=== PATIENT | female | born 2000 | race Two or more races ===

== ENCOUNTER 2023-02-22 16:56 | Outpatient (CLI) | payer BC, SELFPAY | END 2023-02-22 16:57 | disposition home or self-care (01) | PROVIDERS: Visit Provider Registered Nurse | DX: N91.5 Oligomenorrhea, unspecified (principal) | CPT/HCPCS: 80061; 82670; 82947; 83001; 83498; 84146; 84270; 84402; 84403; 84443 ==

== ENCOUNTER 2023-03-22 18:48 | Outpatient (CLI) | payer BC, SELFPAY ==
[2023-03-22 22:40] LABS: Chlamydia DNA Amplified* NOT DETECTED (No Detected); GC DNA Amplified* NOT DETECTED (No Detected)
== END 2023-03-22 18:49 | disposition home or self-care (01) ==
PROVIDERS: PCP Family Medicine; Visit Provider Registered Nurse
DX: Z11.3 Encounter for screening for infections with a predominantly sexual mode of transmission (principal)
CPT/HCPCS: 87491; 87591

== ENCOUNTER 2023-09-28 20:07 | Emergency (ER) | payer OTHER, SELFPAY ==
[2023-09-28 20:19] VITALS: BP 111/73; PULSE 79; RESP 18; TEMP 36.7; O2SAT 99; BMI 26.5
--- NOTE | 2023-09-28 20:24 | ED_ITS ---
HPI - General Time Seen by Provider: 20:24 Date Seen: 09/28/23 Chief complaint: OB/Uterine Contractions Stated complaint: - stomach pain - bleeding Time Seen by Provider: 09/28/23 20:23 Source: patient, RN notes reviewed and lab pack chemist Mode of arrival: ambulatory Limitations: no limitations History of Present Illness HPI Narrative: This 23-year-old female is seen with the aid of the lab pack chemist, she is coming in for cramping and bleeding with early . She has had a home positive test. Her last menstrual period was reportedly on August 23, this would make her 5-/7 weeks. She started with more pinkish spotting with wiping yesterday. It has progressed into bleeding, there are some clots. She is having to wear pads. She does have lower abdominal pain and cramping with this. This would be her 2nd , 1st was a miscarriage about 6 weeks. She is not dizzy, no nausea vomiting, no diarrhea, no fevers associated with this. Patient took 1 Tylenol earlier this morning. MD Complaint: abdominal pain and vaginal bleeding Date of last menstrual period: 08/24/23 Patient : Yes Number of Weeks : 5 7 OB History - Previous Pregnancies: miscarriage (One prior miscarriage) Related Data : 2 Total number of abortions (spontaneous and elective): 1 Home Medications ?Medication ?Instructions ?Recorded ?Confirmed No Known Home Medications 09/28/23 09/28/23 Allergies Allergy/AdvReac Type Severity Reaction Status Date / Time No Known Drug Allergies Allergy Verified 09/28/23 20:22 Review of Systems Status of ROS: Reports: 6 or more systems reviewed and unremarkable except as noted in History and below [facility] Medical History (Updated 09/28/23 @ 21:52 by May Kaminski MD) No significant past medical history Surgical History H/O dilation and curettage ?Z98.890 - Other specified postprocedural states (ICD-10) Family History Mother Diabetes High blood pressure Social History Narrative: Tamazight-speaking. What is your current living situation?: I presently have a place to live Problems where you live: no known problems In the past 12 months, utilities in danger of being shut off: no In past 12 months, lack of transportation kept you from medical appts, meetings, work, or getting things needed for daily living: no In the past 12 mos, have been you worried that your food would run out before you had money to buy more?: never true In the past 12 mos, the food you bought just didn't last and you didn't have money to buy more?: never true Smoking Status: Never smoker Second hand tobacco smoke exposure: No How often do you have a drink containing alcohol: never AUDIT-C Alcohol total score: 0 Non-prescribed substance use: denies use How often does anyone, including family, friends and others, physically hurt you : never How often does anyone, including family, friends and others, insult or talk down to you: never How often does anyone, including family, friends and others, threaten you with harm: never How often does anyone, including family, friends and others, scream or curse at you: never Little interest or pleasure in doing things: not at all Feeling down, depressed, or hopeless: not at all Exam Const: Vital Signs, click to edit/add: Vital Signs - 24 hr 09/28/23 20:19 Temperature 98.1 F Pulse Rate [Right Pulse Oximeter] 79 Respiratory Rate 18 Blood Pressure [Ri ght Upper Arm] 111/73 Pulse Oximetry 99 Oxygen Delivery Me thod Room Air 23-year-old female is alert, interactive , no apparent distress, patient initially sitting up on the edge of the bed. Face atraumatic come sclera clear. Neck is supple, no adenopathy, no thyromegaly masses or nodules. Lungs are clear, good air entry, wheeze or crackles. CV regular rate and rhythm, no murmur, normal S1-S2, no S3-S4. Abdomen is soft, nondistended, mild suprapubic tenderness without rebound or guarding. Do not feeling any organomegaly. No lower extremity edema, skin visualize the any rash. Documenting provider has reviewed patient's vital signs: yes Course Course ED Course: Reviewed plan for labs, will give her some acetaminophen for some initial pain management and see if that is sufficient. Will get ultrasound just to ensure no concerns other than probable early miscarriage. Reevaluation(s) Time of Reevaluation #1: 21:42 Reevaluation #1: Reviewed with patient that her ultrasound shows no evidence of any intrauterine . Her hCG is quite low at 9, this most definitely represents a miscarriage for her. We discussed that she is not anemic at this time. She may anticipate bleeding that would be anonymous with a heavy menstrual cycle. I have asked her to follow up with [facility] here, she was planning on doing her OB care here. We would like to make sure that she follows up with them, to discuss the 2nd miscarriage in make sure that she is okay. Her hCG also should be followed to 0. Vital Signs Vital signs: Initial Vital Signs Temperature 98.1 F 09/28/23 20:19 Temperature Source Temporal Artery Scan 09/28/23 20:19 Pulse Rate 79 09/28/23 20:19 Respiratory Rate 18 09/28/23 20:19 Blood Pressure 111/73 09/28/23 20:19 Blood Pressure Mean 85 09/28/23 20:19 Blood Pressure Position Sitting 09/28/23 20:19 Pulse Oximetry 99 09/28/23 20:19 Oxygen Delivery Method Room Air 09/28/23 20:19 Vital Signs Temperature 98.1 F 09/28/23 20:19 Pulse Rate 79 09/28/23 20:19 Respiratory Rate 18 09/28/23 20:19 Blood Pressure 111/73 09/28/23 20:19 Pulse Oximetry 99 09/28/23 20:19 Oxygen Delivery Method Room Air 09/28/23 20:19 Temperature 98.1 F 09/28/23 20:19 Pulse Rate 79 09/28/23 20:19 Respiratory Rate 18 09/28/23 20:19 Blood Pressure 111/73 09/28/23 20:19 Pulse Oximetry 99 09/28/23 20:19 Oxygen Delivery Method Room Air 09/28/23 20:19 MDM - OB/Uterine Contractions Lab Data Attestation: I reviewed the patient's lab results. Labs: Lab Results 09/28/23 Range/Units 20:45 WBC 10.22 (4.50-11.00) K/uL RBC 4.53 (4.00-5.20) m/uL Hgb 13.4 (12.0-16.0) gm/dL Hct 40.3 (33.0-51.0) % MCV 89 (80-100) fL MCH 30 (26-34) pg MCHC 33 (32-36) gm/dL RDW Coeff of Gayle 13.8 (11.5-15.5) % Plt Count 237 (140-440) K/uL Neut % (Auto) 57.4 (42.0-72.0) % Lymph % (Auto) 34.3 (20-44) % Taylor % (Auto) 7.0 (0.0-11.0) % Eos % (Auto) 0.9 (0.0-7.0) % Baso % (Auto) 0.2 (0.0-3.0) % Neut # (Auto) 5.86 (1.7-7.0) K/uL Lymph # (Auto) 3.51 H (0.90-2.90) K/uL Taylor # (Auto) 0.70 (0.00-0.90) K/UL Eos # (Auto) 0.09 (0.00-0.50) K/uL Baso # (Auto) 0.02 (0.00-0.30) K/uL Abs Immat Gran (auto) 0.02 (0.00-0.30) K/uL Imm/Tot Granulo (auto) 0.2 % Sodium 138 (135-149) mmol/L Potassium 3.6 (3.6-5.1) mmol/L Chloride 106 (96-114) mmol/L Carbon Dioxide 25 (20-32) mmol/L Anion Gap 7 (7-15) mEq/L BUN 4 L (5-24) mg/dL Creatinine 0.5 (0.5-1.5) mg/dL Estimated Creat Clear 137.22 Estimated GFR 134 ml/min Glucose 94 (60-115) mg/dL Calcium 9.2 (8.4-10.6) mg/dL HCG, Quant 9.33 mIU/mL Blood Type B Positive Imaging Data US - abdomen: Attestation: I have reviewed the pertinent imaging results. Radiologist's impression: Patient: RANDI SEPULVEDA Facility:?[facility] Patient ID:?[id number] Site Patient ID:?[id number]. Site :?[id number] Study:?US-OB Pelvis OB TV-09/28/2023 9:35:20 PM Ordering Physician:Camila Olvera Final Report: INDICATION: Bleeding in early . TECHNIQUE: Ultrasound pelvis transvaginal. Real-time sonographic images with spectral and color Doppler imaging of the ovaries were obtained. COMPARISON: None. FINDINGS: No intrauterine gestation identified. The uterus is normal in appearance. Normal endometrial stripe thickness measuring 8 mm. No fluid collection visualized within the endometrial canal. The ovaries are normal in appearance with appropriate blood flow. No adnexal mass. No abnormal free fluid in the pelvic cul-de-sac. IMPRESSION: Unremarkable pelvic ultrasound. No intrauterine gestation identified. In the setting of a positive beta HCG, findings could represent an early nonvisualized intrauterine gestation, an early nonvisualized ectopic , or a failed intrauterine gestation. Recommend close clinical follow-up with serial B-HCGs and repeat US, as indicated. Dictated by Demar Wright MD @ 09/28/2023 9:39:40 PM (Electronic Signature) Discharge Plan Discharge Clinical Impression: Miscarriage Patient Disposition: Home, Self-Care Condition: Stable Instructions: Miscarriage (ED) Additional Instructions: [facility] at [phone] to get scheduled for a follow-up appointment. If you are bleeding heavy with greater than a maxi pad an hour for over 2 hours, are becoming lightheaded or dizzy, short of breath, chest pain or other symptoms that are concerning to with excessive blood loss, please return for further evaluation. Activity Level: Activity as Tolerated Prescriptions: No Action No Known Home Medications Follow Up/Referrals: Ranjith Juarez MD [Primary Care Provider] - Stand Alone Forms: MyHealth Info Instructions Procedures Perimortem Number of Weeks : 5 03/13
--- NOTE | 2023-09-28 20:28 | CRLHL7_ITS ---
For Patients: As a result of the Century Cures Act, medical imaging exams and procedure reports are released immediately into your electronic medical record. You may view this report before your referring provider. If you have questions, please contact your health care provider. INDICATION: Bleeding in early . TECHNIQUE: Ultrasound pelvis transvaginal. Real-time sonographic images with spectral and color Doppler imaging of the ovaries were obtained. COMPARISON: None. FINDINGS: No intrauterine gestation identified. The uterus is normal in appearance. Normal endometrial stripe thickness measuring 8 mm. No fluid collection visualized within the endometrial canal. The ovaries are normal in appearance with appropriate blood flow. No adnexal mass. No abnormal free fluid in the pelvic cul-de-sac. IMPRESSION: Unremarkable pelvic ultrasound. No intrauterine gestation identified. In the setting of a positive beta HCG, findings could represent an early nonvisualized intrauterine gestation, an early nonvisualized ectopic , or a failed intrauterine gestation. Recommend close clinical follow-up with serial B-HCGs and repeat US, as indicated. Dictated by Demar Wright MD @ 09/28/2023 9:39:40 PM (Electronically Signed)
[2023-09-28 20:51] LABS: Basophils Absolute Auto 0.02 K/uL (0.00-0.30); Basophils Percent Auto 0.2 % (0.0-3.0); Eosinophils Absolute Auto 0.09 K/uL (0.00-0.50); Eosinophils Percent Auto 0.9 % (0.0-7.0); Hematocrit 40.3 % (33.0-51.0); Hemoglobin* 13.4 gm/dL (12.0-16.0); Immature Granulocytes Abs Auto 0.02 K/uL (0.00-0.30); Immature Granulocytes Pct Auto 0.2 %; Lymphocytes Absolute Auto 3.51 K/uL (0.90-2.90); Lymphocytes Percent Auto 34.3 % (20-44); Mean Corpuscular HGB Conc 33 gm/dL (32-36); Mean Corpuscular Hemoglobin 30 pg (26-34); Mean Corpuscular Volume 89 fL (80-100); Neutrophils Absolute Auto 5.86 K/uL (1.7-7.0); Neutrophils Percent Auto 57.4 % (42.0-72.0); Platelet Count* 237 K/uL (140-440); RDW Coefficient of Variation % 13.8 % (11.5-15.5); Red Blood Count 4.53 m/uL (4.00-5.20); White Blood Count* 10.22 K/uL (4.50-11.00)
[2023-09-28 21:05] LABS: Chloride* 106 mmol/L (96-114); Potassium* 3.6 mmol/L (3.6-5.1); Sodium* 138 mmol/L (135-149)
[2023-09-28 21:08] LABS: Anion Gap 7 mEq/L (7-15); Blood Urea Nitrogen* 4 mg/dL (5-24); Carbon Dioxide* 25 mmol/L (20-32); Glucose* 94 mg/dL (60-115)
[2023-09-28 21:09] LABS: Calcium* 9.2 mg/dL (8.4-10.6)
[2023-09-28 21:24] LABS: Creatinine* 0.5 mg/dL (0.5-1.5); Est. Creatinine Clearance* 137.22; Estimated Glomerular Filt Rate 134 ml/min; Slide Review Reflex No
[2023-09-28 21:26] LABS: HCG Quantitative* 9.33 mIU/mL
[2023-09-28 22:10] VITALS: BP 114/74; PULSE 74; RESP 18; TEMP 36.7; O2SAT 99
[2023-09-28 22:11] VITALS: BP 114/74; PULSE 74; RESP 18; TEMP 36.7
== END 2023-09-28 22:13 | disposition home or self-care (01) ==
LOC: ED 22:08
PROVIDERS: Emergency Provider Family Medicine; PCP Family Medicine
DX: O03.9 Complete or unspecified spontaneous abortion without complication (principal)
CPT/HCPCS: 36415; 59514; 76817; 80048; 84702; 85025; 86900; 86901; 99283; 99284

== ENCOUNTER 2024-02-15 18:14 | Emergency (ER) | payer OTHER, SELFPAY ==
[2024-02-15 18:18] VITALS: BP 113/79; PULSE 62; RESP 18; TEMP 36.7; O2SAT 100
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
== END 2024-02-15 19:49 | disposition home or self-care (01) ==
PROVIDERS: Emergency Provider Emergency Medicine; PCP Family Medicine
DX: S06.0X0A Concussion without loss of consciousness, initial encounter (principal); W22.8XXA Striking against or struck by other objects, initial encounter
CPT/HCPCS: 99283

== ENCOUNTER 2024-03-11 18:44 | Emergency (ER) | payer BC, SELFPAY ==
--- OUTSIDE RECORDS SUMMARY | 2024-03-11 18:47 | XMS_ITS | Clinical Summary ---
Author Organization [facility] Address [address] [place] [address] Care Team Providers Care Tow Truck Dispatcher Name Role Phone Saima Carey MD Primary Care Provider [phone] Source Comments PLEASE NOTE, if this patient is a minor, it may be UNLAWFUL to discuss sensitive information that is contained in these records (such as FAMILY PLANNING, MENTAL HEALTH or SUBSTANCE ABUSE) with the minor patient's parent or other person without the patient's specific authorization.[facility] Allergies No known active allergies Medications cetirizine (ZYRTEC) 10 mg tablet Take 10 mg by mouth once daily 2 Active SE-OTILIO-19 29 mg iron- 1 mg tab Take 1 Tablet by mouth once daily 2 Active folic acid (FOLVITE) 400 mcg tabletIndications: Encounter for removal of subdermal contraceptive implant,Pre-concep tion counseling Take 1 Tablet by mouth once daily 90 Tablet 3 2 Active ibuprofen 600 mg tabletIndications: Occipital headache Take 1 Tablet by mouth 3 (three) times daily as needed for pain ; take with food 30 Tablet 1 2 Active Active Problems Patient Care Coordination No te Formatting of this note is d ifferent from the original. DATING Dating Summary Working GAL: 01/07/22 set by Claudia Skaggs on 05/28/21 based on Last Menstrual Period on 04/02/21 Based On GAL GA Diff GA User Date Last Menstrual Period on 04/02/21 (Approximate) 01/07/22 Working Claudia Skaggs 05/28/21 OB SPECIALTY COMMENTS / OB CARE COORDINATION NOTES No specialty comments available. IMMUNIZATIONS AND PAP Last Tdap: Last Flu: Last Pap: No results found for: PAP COVID vaccine: Unknown, OVERVIEW Overview and Plan Delivery Plans Planned delivery location: [facility] OB EXAM Pregravid BMI: Could not be calculated Expected Total Weight Gain: Could not be calculated Physical No physicals filed. OB ULTRASOUND The most recent ultrasound was performed on with a study GA of . NST / BPP No data to display CARE TEAM No care team assistant to display Primary OB: No primary care provider on file. INITIAL LABS Blood type / Rh No results found for: ABO No results found for: RH Antibody Screen No results found for: ABSCREEN RPR/VDRL No results found for: RPR Diabetes Screen No results found for: [id number] Rubella No results found for: RUBELLA Hep B No results found for: HBSAGQL GBBS No results found for: CULTSTREPB HIV No components found for: [id number] No results found for: [id number] Hep C No results found for: HEPCABQL Gonorrhea / Chlamydia No results found for: CHLAMYDIA No results found for: CHLAMANAL No results found for: GC 5 Ps Problem Noted Date Diagnosed Date Chronic midline thoracic back pain 05/09/2022 Assessment & Plan (05/09/2022 7:59 PM CONSULTING APPLICATION ENGINEER): Possible back pain related to recent weight gain, posture at work Recommended supportive care with OTC analgesics, increased exercise/stretching, heating pads or ice as preferred If pain persists despite above measures can consider PT referral Weight gain 05/09/2022 Pelvic pain 05/09/2022 Assessment & Plan (05/09/2022 7:57 PM CONSULTING APPLICATION ENGINEER): Discussed with patient that pelvic US not routine after D&C unless continued bleeding or other symptoms arise Patient still concerned about pelvic etiology of lower abdominal pain Pelvis US ordered Other fatigue 01/12/2022 Assessment & Plan (01/12/2022 6:59 AM CONSULTING APPLICATION ENGINEER): Mild fatigue x 2 weeks. No anhedonia or low mood. No problem with meal frequency or sleep. CBC and TSH ordered. Occipital headache 12/15/2021 Assessment & Plan (12/15/2021 5:44 PM CDT): Likely tension type vs 2/2 upper back pain. Conservative measures with heat, neck stretches, ibuprofen, topicals, increasing water intake, updated eye exam. Follow up in clinic within 2 weeks. ER precautions. Abnormal uterine bleeding (AUB) 12/15/2021 Overview (12/15/2021): 2/2 Nexplanon removal Assessment & Plan (12/15/2021 5:31 PM CDT): Now resolved. Continue PNV, follow up in clinic within 2 weeks to assess. Pre-conception counseling 11/20/2021 Overview (11/20/2021): History reviewed - no risk factors Labs reviewed Start folic acid now - recommend waiting for one normal menses before pursuing for folic acid and dating. All questions answered. Foot injury 11/20/2021 Overview (11/20/2021): Patient inverted L foot approx 1 week ago - continues to be very painful on outer aspect, evolving bruising and mild swelling. Can walk but uncomfortable. Will order x-ray to confirm no fracture. Has crutches using at home for comfort - advised NSAID, tylenol, wrap if feels better, heat as tolerated / feels good. Encounter for removal of subdermal contraceptive implant 07/18/2021 Overview (11/20/2021): Nexplanon insertion - due for removal 08/07/26 11/19/21 Nexplanon removed as patient plans to pursue . Post-procedure care reviewed. Discussed can immediately become - condoms if wants to postpone for one normal menses to improve dating. Assessment & Plan (09/01/2021 4:41 PM CDT): -reassured pt that irregular bleeding w/ newly placed Nexplanon common -recommend if bleeding continues after 3-4 months of use to make in person appt for possible addition of ocp to help reduce the bleeding or perhaps switch to different method, pt agreeable Assessment & Plan (08/07/2021 2:17 PM CDT): Risks / benefits reviewed, desires Nexplanon Care reviewed F/U PRN Assessment & Plan (07/31/2021 4:53 PM CDT): Reviewed contraceptive options, advantages and disadvantages depending on a person's desires, future fertility plans and values. Written overview as well as more detailed information on LARCs and CHC given to review at home. Condoms dispensed. Desires Nexplanon but declines insertion today (has weekend plans that prohibit proper care) - f/u visit in 1 week. 100% use of condoms or abstinence encouraged until insertion. Assessment & Plan (07/18/2021 12:23 PM CDT): Reviewed contraceptive options, advantages and disadvantages depending on a person's desires, future fertility plans and values. Written overview as well as more detailed information on LARCs and CHC given to review at home. Condoms dispensed. At this time patient prefers to review at home, return to further discuss and RX. Discussed rapid return to fertility, need for condoms with sexual activity - correct use reviewed. Will continue vitamins. Patient does not want another rapidly - unsure when would want to be again. Interested in contraception, has not used before. Worried because has had UPI since D&C (> 5 d ago) and took test that is still positive. Discussed + test 2-4 weeks after loss / D&C common, can repeat at follow up and further eval at that time. Resolved Problems Problem Noted Date Diagnosed Date Resolved Date Nasal congestion 01/12/2022 02/11/2022 Assessment & Plan (01/12/2022 7:04 AM CONSULTING APPLICATION ENGINEER): Ongoing x 3 days. No known sick contacts, fevers or chills. Likely URI, advised to stay hydrated. Covid test ordered. Missed 07/02/2021 07/18/2021 Assessment & Plan (07/16/2021 10:00 PM CDT): Managed via D&C 07/03/21 at [facility]. Assessment & Plan (07/02/2021 11:33 AM CDT): CRL measuring 8w5d, no cardiac activity Rh positive Discussed management options with patient including expectant v medical v surgical management At this time patient considering surgical mangement - [facility] Incomplete 07/02/2021 07/19/19 22 Encounter for supervision of low-risk first in first trimester 06/18/2021 07/02/2021 Immunizations Name Administration Dates Next Due Pfizer COVID vaccine, COMIRNATY, zelaya cap, 12+ 0 06/18/2021 Family History Medical History Relation Name Comments Diabetes Mother Hypertension Mother Cancer Neg Genetic disorder Neg Heart Problems Neg Relation Name Status Comments Father Alive Mother Alive Social History Tobacco Use Types Packs/Day Years Used Date Smoking Tobacco: Never Smokeless Tobacco: Never Tobacco Cessation:Counseling Given: Not Answered Alcohol Use Standard Drinks/Week Comments Never 0 (1 standard drink = 0.6 oz pur e alcohol) Social Connections Answer Date Recorded Connectedness 0 11/18/2023 Financial Resource Strain Answer Date R ecorded Financial Resource Strain 0 2021 Stress Answer Date Recorded Stress 0 05/27/2021 Physical Activity Answer Date Recorded Physical Activity 0 05/27/2021 Food Insecurity Answer Date Recorded Food 0 12/01/2023 Transportation Needs Answer Date Record ed Transportation 0 05/27/2021 Housing Stability Answer Date Recorded Housing 0 05/27/2021 Safety and Environment Answer Date Yehuda rded Safety 0 05/27/2021 Utilities Answer Date Recorded Utilities 0 05/27/2021 Employment Answer Date Recorded Stress 0 11/18/2023 Comments Unknown Sex and Gender Information Value Date Recorded Sex Assigned at Female 05/28/2021 9:21 AM PDT Legal Sex Female 9:21 AM PDT Gender Identity Female 05/28/2021 9:21 AM PDT Sexual Orientation Straight 05/28/2021 9: 21 AM PDT Last Filed Vital Signs Vital Sign Reading Time Taken Comments Blood Pressure 116/75 04/27/2022 1:57 PM CONSULTING APPLICATION ENGINEER Pulse 123 04/27/2022 1:57 PM CONSULTING APPLICATION ENGINEER Temperature 37 C (98.6 F) 04/27/2022 1:57 PM CONSULTING APPLICATION ENGINEER Respiratory Rate - - Oxygen Saturation - - Inhaled Oxygen Concentration - - Weight 80.3 kg (177 lb) 04/27/2022 1:57 PM CONSULTING APPLICATION ENGINEER Height 162.6 cm (5' 4) 04/27/2022 1:57 PM CONSULTING APPLICATION ENGINEER Body Mass Index 30.38 04/27/2022 1:57 PM CONSULTING APPLICATION ENGINEER Plan of Treatment Health Maintenance Due Date Last Done Comments Dental FMX/Pano 1999 Dental Prophy 1999 HPV Screening 1999 Hepatitis C Screening 1999 Pap + HPV 1999 Tobacco Screening 1999 Imm-Varicella (1 of 2 - 13+ 2-dose series) 01/17/2012 HIV Screening 2014 Imm-HPV (1 - 3-dose series) 2014 Relationship Safety Screening/Counseling 2014 Annual Preventive Care Visit 2017 Imm-DTaP/Tdap/Td (1 - Tdap) 2018 Imm-Hepatitis B (1 of 3 - 19+ 3-dose series) 8 Dental Examination 01/15/2022 07/13/2021 Dental Perio Charting 07/15/2022 07/13/2021 Alcohol and Drug Screen 03/07/2023 Depression Annual Screen 03/07/2023 04/27/2022 [id number] ( season) 2023 022 Imm-Influenza (#1) 2023 Cervical Cancer Screening 06/18/2024 Pap Smear 06/18/2024 06/18/2021 Hypertension Screening (#1) 04/26/2025 Cervical Ablation/Cold-Knife Conization Discontinued Cervical Cryotherapy Discontinued Colposcopy Discontinued Endometrial Biopsy Discontinued Excision/Leep Discontinued HPV Genotyping Discontinued Vaginal Pap Discontinued Vulvoscopy Discontinued Procedures Procedure Name Priority Date/Time Associated Diagnosis Comments COMP PERIODONTAL EVALUATION - NEW/EST PATIENT Routine 07/13/2021 2:45 PM CDT Encounter for dental examination COMP ORAL EVALUATION - NEW/ESTABLISHED PATIENT Routine 07/13/2021 2:45 PM CDT Encounter for dental examination PAP, LIQUID BASED Routine 06/18/2021 11: 33 AM CDT Encounter for supervision of low-risk first in first trimester from Last 3 Months or Most Recently Relevant to Health Maintenance Results * PAP, LIQUID BASED (06/18/2021 11:33 AM CDT) DIAGNOSIS [facility] Comment:NEGATIVE FOR INTRAEP ITHELIAL LESION OR MALIGNANCY. SPECIMEN ADEQUACY [facility] Comment: Satisfactory for evaluation. Endocervical and/or squamous metaplastic cells (endocervical component) are present. CLINICIAN PROVIDED ICD10 [facility] Comment:Z34.01 PERFORMED BY [facility] Comment:Nelli Del Rio, Cyto technologist (ASCP) CYTOSTAIN . [facility] NOTE [facility] Comment: The Pap smear is a screening test designed to aid in the detection of premalignant and malignant conditions of the uterine cervix. It is not a diagnostic procedure and should not be used as the sole means of detecting cervical cancer. Both false-positive and false-negative reports do occur. . CYTOLOGY Cervix uteri structure / Unknown 06/18/2021 11:33 AM CDT 06/18/2021 Narrative [facility] - 06/24/2021 3:07 PM CDT Performed at: 01 - [address] [id number] Dairy Inspector: Philly Puente MD, Phone: [phone] us Trent Topete III, MD LAB - NO BLOOD DRAW Final Re sult [facility] from Last 3 Months or Most Recently Relevant to Health Maintenance Insurance [employer] Member Subscriber Plan / Payer (Ef fective 2021-Present) Name:Nereida Barr Relation to Subscriber:Self Name:Nereida Barr Payer ID:[id number] Group ID:Not on file Type:Medicaid Address: [address] [place] [id number] [place] [address] DENTAL [facility] Care Teams Tow Truck Dispatcher Relationship Specialty Start Date End Date Saima Carey MD [address] [place] [address] PCP - General 09/09/23
--- OUTSIDE RECORDS SUMMARY | 2024-03-11 18:47 | XMS_ITS | Continuity of Care Document ---
Author Name [facility]IN [facility] Address Unknown Organization Unknown Address Unknown Procedures FILTER APPLIED:Only known Procedures with Onset Date within the last 5 years Procedure Date Procedure Provider Additional Information Status CHLMYD TRACH DNA AMP PROBE (14530) Completed N.GONORRHOEAE DNA AMP PROB (05095) Completed ASSAY THYROID STIM HORMONE (32883) Completed ASSAY OF TOTAL ESTRADIOL (91479) Completed ASSAY OF GONADOTROPIN (FSH) (79197) Completed ASSAY OF PROLACTIN (46735) Completed ASSAY OF SEX HORMONE GLOBUL (12519) Completed ASSAY OF FREE TESTOSTERONE (98470) Completed ASSAY OF TOTAL TESTOSTERONE (80766) Completed ASSAY GLUCOSE BLOOD QUANT (54982) Completed LIPID PANEL (07180) Comp leted ASY HYDROXYPROGESTERONE 17-D (15226) Completed Encounters FILTER APPLIED:Only known Encounters with Admission Date within the last 5 years Encounter Location Admission Discharge Billing Code Bull Gang Worker Yasmin scott [facility]
[2024-03-11 18:56] VITALS: BP 122/75; PULSE 83; RESP 16; TEMP 37.4; O2SAT 98; BMI 26.2
[2024-03-11 19:19] LABS: Appearance Urine Clear (Clear); Bilirubin Urine Negative (Negative); Blood Urine Trace-intact (Negative); Color Urine Yellow (Yellow); Glucose Urine Negative (Negative); Ketones Urine Negative (Negative); Leukocyte Esterase Urine Negative (Negative); Nitrite Urine Negative (Negative); Protein Urine Negative (Negative); Specific Gravity Urine <= 1.005 (1.000-1.030); Urobilinogen Urine 0.2 (0.2-1.0); pH Urine 5.5 (5.0-8.5)
[2024-03-11 19:23] LABS: RBC Urine 0-2 (0-2); WBC Urine 0-2 (0-5)
[2024-03-11 19:24] LABS: Squamous Epithelial Cell Urine Few (None-Few)
--- NOTE | 2024-03-11 19:29 | CRLHL7_ITS ---
For Patients: As a result of the Century Cures Act, medical imaging exams and procedure reports are released immediately into your electronic medical record. You may view this report before your referring provider. If you have questions, please contact your health care provider. INDICATION: Bleeding in 1st trimester COMPARISON: None. TECHNIQUE: Real-time zelaya-scale imaging of the pelvis was performed. FINDINGS: No intrauterine or ectopic . No endometrial fluid. Endometrium measures 1.2 cm. No uterine fibroid. Normal ovaries. IMPRESSION: No intrauterine or ectopic . Dictated by Wilbert Cody MD @ 03/11/2024 9:11:04 PM (Electronically Signed)
--- OUTSIDE RECORDS SUMMARY | 2024-03-11 19:39 | XMS_ITS | Continuity of Care Document ---
Author Name [facility]wORIN [facility] Address Unknown Organization Unknown Address Unknown Procedures FILTER APPLIED:Only known Procedures with Onset Date within the last 5 years Procedure Date Procedure Provider Additional Information Status CHLMYD TRACH DNA AMP PROBE (70864) Completed N.GONORRHOEAE DNA AMP PROB (03766) Completed ASSAY THYROID STIM HORMONE (65151) Completed ASSAY OF TOTAL ESTRADIOL (47936) Completed ASSAY OF GONADOTROPIN (FSH) (02706) Completed ASSAY OF PROLACTIN (03652) Completed ASSAY OF SEX HORMONE GLOBUL (07727) Completed ASSAY OF FREE TESTOSTERONE (10036) Completed ASSAY OF TOTAL TESTOSTERONE (85817) Completed ASSAY GLUCOSE BLOOD QUANT (27321) Completed LIPID PANEL (85447) Comp leted ASY HYDROXYPROGESTERONE 17-D (02975) Completed Encounters FILTER APPLIED:Only known Encounters with Admission Date within the last 5 years Encounter Location Admission Discharge Billing Code Career Placement Specialist Yas[facility]
--- OUTSIDE RECORDS SUMMARY | 2024-03-11 19:39 | XMS_ITS | Clinical Summary ---
Author Organization [facility] Address [address] [place] [address] Care Team Providers Care Ethylene Compressor Operator Name Role Phone Saima Carey MD Primary Care Provider [phone] Source Comments PLEASE NOTE, if this patient [...] Dating Summary Working GAL: 01/07/22 set by Cluadia Skaggs on 05/28/21 based on Last Menstrual [...] and Plan Delivery Plans Planned delivery location: [facility] OB EXAM Pregravid BMI: Could not be calculated Expected Total Weight Gain: Could not be calculated Physical No physicals filed. OB ULTRASOUND The most recent ultrasound was performed on with a study GA of . NST / BPP No data to display CARE TEAM No care steam generating powerplant mechanic to display Primary OB: No primary care provider on file. INITIAL LABS Blood type / Rh No results found for: ABO No results found for: RH Antibody Screen No results found for: ABSCREEN RPR/VDRL No results found for: RPR Diabetes Screen No results found for: [id number] Rubella No results found for: RUBELLA Hep B No results found for: HBSAGQL GBBS No results found for: CULTSTREPB HIV No components found for: [id number] No results found for: [id number] Hep C No results found for: HEPCABQL Gonorrhea / Chlamydia No results found for: CHLAMYDIA No results found for: CHLAMANAL No results found for: GC 5 Ps Problem Noted Date Diagnosed Date Chronic midline thoracic back pain 05/09/2022 Assessment & Plan (05/09/2022 7:59 PM DIESEL MECHANIC FARM): Possible back pain related to recent weight gain, posture at work Recommended supportive care with OTC analgesics, increased exercise/stretching, heating pads or ice as preferred If pain persists despite above measures can consider PT referral Weight gain 05/09/2022 Pelvic pain 05/09/2022 Assessment & Plan (05/09/2022 7:57 PM DIESEL MECHANIC FARM): Discussed with patient that pelvic US not routine after D&C unless continued bleeding or other symptoms arise Patient still concerned about pelvic etiology of lower abdominal pain Pelvis US ordered Other fatigue 01/12/2022 Assessment & Plan (01/12/2022 6:59 AM DIESEL MECHANIC FARM): Mild fatigue x 2 weeks. No anhedonia [...] 02/11/2022 Assessment & Plan (01/12/2022 7:04 AM DIESEL MECHANIC FARM): Ongoing x 3 days. No known sick contacts, fevers or chills. Likely URI, advised to stay hydrated. Covid test ordered. Missed 07/02/2021 07/18/2021 Assessment & Plan (07/16/2021 10:00 PM CDT): Managed via D&C 07/03/21 at [facility]. Assessment & Plan (07/02/2021 11:33 AM CDT): [...] Comments Blood Pressure 116/75 04/27/2022 1:57 PM DIESEL MECHANIC FARM Pulse 123 04/27/2022 1:57 PM DIESEL MECHANIC FARM Temperature 37 C (98.6 F) 04/27/2022 1:57 PM DIESEL MECHANIC FARM Respiratory Rate - - Oxygen Saturation - - Inhaled Oxygen Concentration - - Weight 80.3 kg (177 lb) 04/27/2022 1:57 PM DIESEL MECHANIC FARM Height 162.6 cm (5' 4) 04/27/2022 1:57 PM DIESEL MECHANIC FARM Body Mass Index 30.38 04/27/2022 1:57 PM DIESEL MECHANIC FARM Plan of Treatment Health Maintenance Due Date Last Done Comments Dental FMX/Pano 1999 Dental Prophy 1999 HPV Screening 1999 Hepatitis C Screening 1999 Pap + HPV 1999 Tobacco Screening 1999 Imm-Varicella (1 of 2 - 13+ 2-dose series) 01/17/2012 HIV Screening 2014 Imm-HPV (1 - 3-dose series) 2014 Relationship Safety Screening/Counseling 2014 Imm-DTaP/Tdap/Td (1 - Tdap) 2018 Imm-Hepatitis B (1 of 3 - 19+ 3-dose series) 8 Dental Examination 01/15/2022 07/13/2021 Dental Perio Charting 07/15/2022 07/13/2021 [id number] () 11/06/2023 022 Imm-Influenza (#1) 2023 Alcohol and Drug Screen 03/07/2024 Depression Annual Screen 03/07/2024 04/27/2022 Cervical Cancer Screening 06/18/2024 Pap Smear 06/18/2024 [...] [facility] Comment:Nelli Del Rio, Cyto technologist (ASCP) CYTOSTORSTEN . [facility] NOTE [facility] Comment: The Pap [...] 3:07 PM CDT Performed at: 01 - [address] [id number] Supervisor Tile [employer] Mottle: Philly Puente MD, Phone: [phone] Trent Topete III, MD LAB - NO BLOOD DRAW Final Re [facility] from Last 3 Months or Most Recently Relevant to Health Maintenance Insurance [employer] Member Subscriber Plan / Payer (Ef fective 2021-Present) Name:Nereida Barr Relation to Subscriber:Self Name:Nereida Barr Payer ID:[id number] Group ID:Not on file Type:Medicaid Address: [address] [place] [id number] [place] [address] DENTAL [facility] Care Teams Ethylene Compressor Operator Relationship Specialty Start Date End Date Saima Carey MD [address] [place] [address] PCP - General 09/09/23
--- NOTE | 2024-03-11 19:49 | ED_ITS ---
HPI - General Date Seen: 03/11/24 Chief complaint: OB/Uterine Contractions Stated complaint: , pain, bleeding Time Seen by Provider: 03/11/24 19:08 Source: patient Mode of arrival: ambulatory Limitations: no limitations History of Present Illness HPI Narrative: Patient is a 24-year-old female presenting to emergency department for lower pelvic pain and vaginal spotting. She states she tested had a positive test 3 days ago and her last menstrual period was 3 weeks ago. She is A2 with 2 miscarriages. She states both previous miscarriages felt like this. She is concerned because she does not want to have another miscarriage. States she has some lightheadedness and dizziness earlier that has since resolved. Denies any nausea or vomiting. Denies headache, vision changes, weakness, numbness, chest pain, shortness of breath. The states she has had some mild dysuria today. No other concerns noted. Related Data Home Medications ?Medication ?Instructions ?Recorded ?Confirmed No Known Home Medications 09/28/23 03/11/24 Allergies Allergy/AdvReac Type Severity Reaction Status Date / Time No Known Drug Allergies Allergy Verified 03/11/24 18:58 Review of Systems Status of ROS: Reports: 10 or more systems reviewed and unremarkable except as noted in History and below PFSH PFSH Medical History No significant past medical history Surgical History H/O dilation and curettage ?Z98.890 - Other specified postprocedural states (ICD-10) Family History Mother Diabetes High blood pressure Social History Narrative: Italian-speaking. What is your current living situation?: I presently have a place to live Problems where you live: no known problems In the past 12 months, utilities in danger of being shut off: no In past 12 months, lack of transportation kept you from medical appts, meetings, work, or getting things needed for daily living: no In the past 12 mos, have been you worried that your food would run out before you had money to buy more?: never true In the past 12 mos, the food you bought just didn't last and you didn't have money to buy more?: never true Smoking Status: Never smoker Do you use any of these nicotine containing products: None Second hand tobacco smoke exposure: No How often do you have a drink containing alcohol: never How often do you have six or more drinks on one occasion: Never AUDIT-C Alcohol total score: 0 Non-prescribed substance use: denies use How often does anyone, including family, friends and others, physically hurt you : never How often does anyone, including family, friends and others, insult or talk down to you: never How often does anyone, including family, friends and others, threaten you with harm: never How often does anyone, including family, friends and others, scream or curse at you: never service: No Exam Narrative: Exam Narrative: Const: Well-nourished, Well-developed, in mild distress Eyes: PERRL, no conjunctival injection, and symmetrical lids HENT: Atraumatic external nose and ears. Moist mucous membranes. Neck: Symmetric, trachea midline, No thyromegaly. CVS: RRR, No murmurs or gallops. Peripheral pulses 2+ and equal in all extremities RESP: Unlabored respiratory effort. Clear to auscultation bilaterally. GI: Lower abdominal tenderness, Nondistended, No rebound or guarding. MSK:Extremities w/o deformity, Normal Active ROM Skin: Warm, Dry. No rashes or lesions. Neuro: Normal Muscle tone, No focal neurological deficits. Psych: Awake, Alert, & Oriented x3. Appropriate mood and affect. Const: Vital Signs, click to edit/add: Vital Signs - 24 hr 03/11/24 18:56 Temperature 99.3 F Pulse Rate [Pulse Oximeter] 83 Respiratory Rate 16 Blood Pressure [Ri ght Upper Arm] 122/75 Pulse Oximetry 98 Oxygen Delivery Me thod Room Air Course Vital Signs Vital signs: Initial Vital Signs Temperature 99.3 F 03/11/24 18:56 Temperature Source Temporal Artery Scan 03/11/24 18:56 Pulse Rate 83 03/11/24 18:56 Respiratory Rate 16 03/11/24 18:56 Blood Pressure 122/75 03/11/24 18:56 Blood Pressure Mean 90 03/11/24 18:56 Blood Pressure Position Sitting 03/11/24 18:56 Pulse Oximetry 98 03/11/24 18:56 Oxygen Delivery Method Room Air 03/11/24 18:56 Vital Signs Temperature 99.3 F 03/11/24 18:56 Pulse Rate 83 03/11/24 18:56 Respiratory Rate 16 03/11/24 18:56 Blood Pressure 122/75 03/11/24 18:56 Pulse Oximetry 98 03/11/24 18:56 Oxygen Delivery Method Room Air 03/11/24 18:56 Temperature 99.3 F 03/11/24 18:56 Pulse Rate 83 03/11/24 18:56 Respiratory Rate 16 03/11/24 18:56 Blood Pressure 122/75 03/11/24 18:56 Pulse Oximetry 98 03/11/24 18:56 Oxygen Delivery Method Room Air 03/11/24 18:56 MDM - OB/Uterine Contractions MDM Narrative Medical decision making narrative: Patient is a 24-year-old female presenting for some spotting and lower abdominal pain. She is she states about 3 weeks. Will do a urinalysis, quantitative hCG, CBC, BMP along with a transvaginal ultrasound to look for signs of ectopic or other possible bleeding. Her quantitative hCG is only 7.64. [facility] lab work shows no concerning findings. Ultrasound shows no intrauterine or ectopic . She is otherwise doing well can be discharged. She will follow-up with her OB. Lab Data Labs: Lab Results 03/11/24 03/11/24 03/11/24 Range/Units 19:08 19:13 19:51 WBC 10.22 (4.50-11.00) K/uL RBC 4.39 (4.00-5.20) m/uL Hgb 12.8 (12.0-16.0) gm/dL Hct 39.0 (33.0-51.0) % MCV 89 (80-100) fL MCH 29 (26-34) pg MCHC 33 (32-36) gm/dL RDW Coeff of Gayle 13.3 (11.5-15.5) % Plt Count 232 (140-440) K/uL Neut % (Auto) 60.8 (42.0-72.0) % Lymph % (Auto) 30.4 (20-44) % [place] % (Auto) 7.2 (0.0-11.0) % Eos % (Auto) 1.2 (0.0-7.0) % Baso % (Auto) 0.3 (0.0-3.0) % Neut # (Auto) 6.21 (1.7-7.0) K/uL Lymph # (Auto) 3.11 H (0.90-2.90) K/uL [place] # (Auto) 0.70 (0.00-0.90) K/UL Eos # (Auto) 0.12 (0.00-0.50) K/uL Baso # (Auto) 0.03 (0.00-0.30) K/uL Abs Immat Gran (auto) 0.01 (0.00-0.30) K/uL Imm/Tot Granulo (auto) 0.1 % Sodium 137 (135-149) mmol/L Potassium 3.7 (3.6-5.1) mmol/L Chloride 105 (96-114) mmol/L Carbon Dioxide 24 (20-32) mmol/L Anion Gap 8 (7-15) mEq/L BUN 11 (5-24) mg/dL Creatinine 0.4 L (0.5-1.5) mg/dL Estimated Creat Clear 177.85 Estimated GFR 141 ml/min Glucose 84 (60-115) mg/dL Calcium 8.8 (8.4-10.6) mg/dL HCG, Quant 7.64 mIU/mL Urine Color Yellow (Yellow) Urine Appearance Clear (Clear) Urine pH 5.5 (5.0-8.5) Ur Specific [place] <= 1.005 (1.000-1.030) Urine Protein Negative (Negative) Urine Glucose (UA) Negative (Negative) Urine Ketones Negative (Negative) Urine Blood Trace-intact A (Negative) Urine Nitrite Negative (Negative) Urine Bilirubin Negative (Negative) Urine Urobilinogen 0.2 (0.2-1.0) Ur Leukocyte Esterase Negative (Negative) Urine RBC 0-2 (0-2) Urine WBC 0-2 (0-5) Ur Squamous Epith Cells Few (None-Few) Urine Bacteria None (None) Lab Acknowledgement Test Added Imaging Data Pelvic ultrasound: Attestation: I have reviewed the pertinent imaging results. Radiologist's impression: No intrauterine or ectopic . Dictated by Wilbert Cody MD @ 03/11/2024 9:11:04 PM Discharge Plan Discharge Clinical Impression: Vaginal bleeding Patient Disposition: Home, Self-Care Condition: Stable Instructions: Abnormal (Dysfunctional) Uterine Bleeding (ED) Additional Instructions: Take Tylenol for pain. Return for new worsening symptoms. Follow-up with your OB Gyne. Prescriptions: No Action No Known Home Medications Follow Up/Referrals: Ranjith Juarez MD [Primary Care Provider] - Stand Alone Forms: [employer] Info Instructions
[2024-03-11 19:51] LABS: HCG Quantitative* 7.64 mIU/mL
[2024-03-11 20:07] LABS: Basophils Absolute Auto 0.03 K/uL (0.00-0.30); Basophils Percent Auto 0.3 % (0.0-3.0); Eosinophils Absolute Auto 0.12 K/uL (0.00-0.50); Eosinophils Percent Auto 1.2 % (0.0-7.0); Hemoglobin* 12.8 gm/dL (12.0-16.0); Immature Granulocytes Abs Auto 0.01 K/uL (0.00-0.30); Immature Granulocytes Pct Auto 0.1 %; Lymphocytes Absolute Auto 3.11 K/uL (0.90-2.90); Lymphocytes Percent Auto 30.4 % (20-44); Mean Corpuscular HGB Conc 33 gm/dL (32-36); Mean Corpuscular Hemoglobin 29 pg (26-34); Mean Corpuscular Volume 89 fL (80-100); Monocytes Percent Auto 7.2 % (0.0-11.0); Neutrophils Absolute Auto 6.21 K/uL (1.7-7.0); Neutrophils Percent Auto 60.8 % (42.0-72.0); Platelet Count* 232 K/uL (140-440); RDW Coefficient of Variation % 13.3 % (11.5-15.5); Red Blood Count 4.39 m/uL (4.00-5.20); White Blood Count* 10.22 K/uL (4.50-11.00)
[2024-03-11 20:12] LABS: Slide Review Reflex No
[2024-03-11 20:30] LABS: Chloride* 105 mmol/L (96-114); Potassium* 3.7 mmol/L (3.6-5.1); Sodium* 137 mmol/L (135-149)
[2024-03-11 20:32] LABS: Creatinine* 0.4 mg/dL (0.5-1.5); Est. Creatinine Clearance* 177.85; Estimated Glomerular Filt Rate 141 ml/min
[2024-03-11 20:33] LABS: Anion Gap 8 mEq/L (7-15); Blood Urea Nitrogen* 11 mg/dL (5-24); Calcium* 8.8 mg/dL (8.4-10.6); Carbon Dioxide* 24 mmol/L (20-32); Glucose* 84 mg/dL (60-115)
[2024-03-11 21:45] VITALS: BP 118/70; PULSE 87; RESP 16; TEMP 37.4; O2SAT 98
[2024-03-11 21:46] VITALS: BP 118/70; PULSE 87; RESP 16; TEMP 37.4
== END 2024-03-11 21:47 | disposition home or self-care (01) ==
PROVIDERS: Emergency Provider Student in an Organized Health Care Education/Training Program; PCP Family Medicine
DX: N93.9 Abnormal uterine and vaginal bleeding, unspecified (principal)
CPT/HCPCS: 36415; 76817; 80048; 81001; 84702; 85025; 99283; 99284

== ENCOUNTER 2024-03-13 09:54 | Emergency (ER) | payer BC, SELFPAY ==
[2024-03-13 10:08] VITALS: BP 109/72; PULSE 65; RESP 18; TEMP 36.6; O2SAT 99; BMI 26.2
--- NOTE | 2024-03-13 13:59 | ED_ITS ---
HPI - General Time Seen by Provider: 13:59 Date Seen: 03/13/24 Chief complaint: Vaginal Bleeding Stated complaint: abdominal pain/ - unsure how far along Time Seen by Provider: 03/13/24 11:22 Source: patient, RN notes reviewed and official court interpreter Mode of arrival: ambulatory Limitations: no limitations History of Present Illness HPI Narrative: This 24yo female is coming back into the ED with concerns of increasing vaginal bleeding and lower abdominal pain/cramping. She was in on the here, had negative US for and ectopic. Hcg was 7.64 yesterday, hemoglobin was 12.8. Her blood type is B positive in the record here. She drove herself here, is not feeling dizzy/lightheaded. She has had 2 prior miscarriages. Last menstrual period was 02/10/2024, ended 02/18/2024. Her visit on 03/11/24 to the ED was for spotting and pelvic pain. MD Complaint: abdominal pain and vaginal bleeding Related Data Home Medications ?Medication ?Instructions ?Recorded ?Confirmed No Known Home Medications 09/28/23 03/13/24 Allergies Allergy/AdvReac Type Severity Reaction Status Date / Time No Known Drug Allergies Allergy Verified 03/11/24 18:58 Review of Systems Status of ROS: Reports: 6 or more systems reviewed and unremarkable except as noted in History and below [facility] Medical History No significant past medical history Surgical History H/O dilation and curettage ?Z98.890 - Other specified postprocedural states (ICD-10) Family History Mother Diabetes High blood pressure Social History Narrative: [place]ish-speaking. What is your current living situation?: I presently have a place to live Problems where you live: no known problems In the past 12 months, utilities in danger of being shut off: no In past 12 months, lack of transportation kept you from medical appts, meetings, work, or getting things needed for daily living: no In the past 12 mos, have been you worried that your food would run out before you had money to buy more?: never true In the past 12 mos, the food you bought just didn't last and you didn't have money to buy more?: never true Smoking Status: Never smoker Do you use any of these nicotine containing products: None Second hand tobacco smoke exposure: No How often do you have a drink containing alcohol: never How often do you have six or more drinks on one occasion: Never AUDIT-C Alcohol total score: 0 Non-prescribed substance use: denies use How often does anyone, including family, friends and others, physically hurt you : never How often does anyone, including family, friends and others, insult or talk down to you: never How often does anyone, including family, friends and others, threaten you with harm: never How often does anyone, including family, friends and others, scream or curse at you: never service: No Exam Const: Vital Signs, click to edit/add: Vital Signs - 24 hr 03/13/24 10:08 03/13/24 14:52 Temperature 98 F Pulse Rate [Pulse Oximeter] 65 72 Respiratory Rate 18 16 Blood Pressure [Ri ght Upper Arm] 109/72 109/77 Pulse Oximetry 99 98 Oxygen Delivery Me thod Room Air Room Air Patient is alert, interactive, no apparent distress. Hemodynamically stable. Sclera clear, able speak in complete sentences. Lungs clear, good air entry, no wheezing crackles. CV regular rate and rhythm, no murmur, normal S1-S2. Abdomen is soft, nondistended, nontender, no rebound or guarding, no masses noted, no organomegaly noted. Pelvic exam deferred at this time. Documenting provider has reviewed patient's vital signs: yes Course Course ED Course: This patient is likely having a miscarriage again. Will check her hemoglobin to ensure no significant dropping; will also see where her hcg is at. If this is rising, will talk to OB. With her LMP at 02/10/24, she would be at 4 weeks 3 days . If the hcg is lower, then I believe that we can say with certainty that she is miscarrying. Patient does request Tylenol for pain, will order 1000 mg. Reevaluation(s) Time of Reevaluation #1: 16:43 Reevaluation #1: Have reviewed with patient discussion with obstetric, rising hCG. Her abdomen is still soft, no significant tenderness, certainly no rebound or guarding. She has a little lower pelvic cramping, pain is improved. She has not had to change a pad while she is here. Discussed signs and symptoms for return and planned follow-up on with obstetric Mcgrath follow-up of her hCG. She did ask if I would provider note to be out of work this week which I will do. Consultations Consultation #1: Have spoke with quality control Dr. Goldstein regarding this patient. On my clinical exam with nontender abdomen, no concern for surgical abdomen, she does not think repeating an ultrasound this time is necessary. This is a very low HCG, she would recommend seeing the patient in 48 hours and rechecking the hCG at that time. She will get the patient in to see them, will put a message into her cardiovascular rn. Time: 16:05 Vital Signs Vital signs: Initial Vital Signs Temperature 98 F 03/13/24 10:08 Temperature Source Temporal Artery Scan 03/13/24 10:08 Pulse Rate 65 03/13/24 10:08 Pulse Rhythm Regular 03/13/24 10:08 Respiratory Rate 18 03/13/24 10:08 Blood Pressure 109/72 03/13/24 10:08 Blood Pressure Mean 84 03/13/24 10:08 Blood Pressure Position Sitting 03/13/24 10:08 Pulse Oximetry 99 03/13/24 10:08 Oxygen Delivery Method Room Air 03/13/24 10:08 Vital Signs Temperature 98 F 03/13/24 10:08 Pulse Rate 65 03/13/24 10:08 Respiratory Rate 18 03/13/24 10:08 Blood Pressure 109/72 03/13/24 10:08 Pulse Oximetry 99 03/13/24 10:08 Oxygen Delivery Method Room Air 03/13/24 10:08 Temperature 98 F 03/13/24 10:08 Pulse Rate 72 03/13/24 14:52 Respiratory Rate 16 03/13/24 14:52 Blood Pressure 109/77 03/13/24 14:52 Pulse Oximetry 98 03/13/24 14:52 Oxygen Delivery Method Room Air 03/13/24 14:52 Medications Administered Medications: Discontinued Medications Generic Name Dose Route Start Last Admin Trade Name Freq PRN Reason Stop Dose Admin Acetaminophen 1,000 mg 03/13/24 14:10 03/13/24 14:15 Acetaminophen 500 Mg Tablet PO 03/13/24 14:11 1,000 mg ONCE ONE Administration MDM - OB/Uterine Contractions Lab Data Labs: Lab Results 03/13/24 Range/Units 14:25 WBC 7.48 (4.50-11.00) K/uL RBC 4.48 (4.00-5.20) m/uL Hgb 13.1 (12.0-16.0) gm/dL Hct 39.8 (33.0-51.0) % MCV 89 (80-100) fL MCH 29 (26-34) pg MCHC 33 (32-36) gm/dL RDW Coeff of Gayle 13.1 (11.5-15.5) % Plt Count 229 (140-440) K/uL Neut % (Auto) 58.2 (42.0-72.0) % Lymph % (Auto) 34.1 (20-44) % [place] % (Auto) 5.9 (0.0-11.0) % Eos % (Auto) 1.3 (0.0-7.0) % Baso % (Auto) 0.4 (0.0-3.0) % Neut # (Auto) 4.35 (1.7-7.0) K/uL Lymph # (Auto) 2.55 (0.90-2.90) K/uL [place] # (Auto) 0.40 (0.00-0.90) K/UL Eos # (Auto) 0.10 (0.00-0.50) K/uL Baso # (Auto) 0.03 (0.00-0.30) K/uL Abs Immat Gran (auto) 0.01 (0.00-0.30) K/uL Imm/Tot Granulo (auto) 0.1 % HCG, Quant 20.87 mIU/mL Discharge Plan Discharge Clinical Impression: First trimester bleeding Patient Disposition: Home, Self-Care Condition: Stable Instructions: Threatened Miscarriage (ED) Additional Instructions: The hCG hormone has slightly increased but this is still extremely low. I have talked to obstetrics, they recommend repeat hCG in 48 hours, they will contact you with an appointment this . In the meantime, if you have significant increase of bleeding with greater than a heavy pad an hour for over 2 hours, are becoming symptomatic with dizziness, lightheadedness, shortness of breath, elevating heart rate, please seek re-evaluation. Likewise, if you have severe abdominal pain, please return to the ER for further evaluation. Prescriptions: No Action No Known Home Medications Follow Up/Referrals: Ranjith Juarez MD [Primary Care Provider] - Stand Alone Forms: [employer] Info Instructions
[2024-03-13] MEDS: ACETAMINOPHEN 500 MG TABLET 1000 MG PO (14:15)
[2024-03-13 14:35] LABS: Basophils Absolute Auto 0.03 K/uL (0.00-0.30); Basophils Percent Auto 0.4 % (0.0-3.0); Eosinophils Percent Auto 1.3 % (0.0-7.0); Hematocrit 39.8 % (33.0-51.0); Hemoglobin* 13.1 gm/dL (12.0-16.0); Immature Granulocytes Abs Auto 0.01 K/uL (0.00-0.30); Immature Granulocytes Pct Auto 0.1 %; Lymphocytes Absolute Auto 2.55 K/uL (0.90-2.90); Lymphocytes Percent Auto 34.1 % (20-44); Mean Corpuscular HGB Conc 33 gm/dL (32-36); Mean Corpuscular Hemoglobin 29 pg (26-34); Mean Corpuscular Volume 89 fL (80-100); Monocytes Percent Auto 5.9 % (0.0-11.0); Neutrophils Absolute Auto 4.35 K/uL (1.7-7.0); Neutrophils Percent Auto 58.2 % (42.0-72.0); Platelet Count* 229 K/uL (140-440); RDW Coefficient of Variation % 13.1 % (11.5-15.5); Red Blood Count 4.48 m/uL (4.00-5.20); Slide Review Reflex No; White Blood Count* 7.48 K/uL (4.50-11.00)
[2024-03-13 14:52] VITALS: BP 109/77; PULSE 72; RESP 16; O2SAT 98
[2024-03-13 15:12] LABS: HCG Quantitative* 20.87 mIU/mL
[2024-03-13 16:53] VITALS: BP 97/72; PULSE 66; RESP 22; O2SAT 98
== END 2024-03-13 17:23 | disposition home or self-care (01) ==
PROVIDERS: Emergency Provider Family Medicine; PCP Family Medicine
DX: O46.91 Antepartum hemorrhage, unspecified, first trimester (principal)
CPT/HCPCS: 36415; 84702; 85025; 99283; T1013; A9270

== ENCOUNTER 2024-03-15 08:35 | Outpatient (CLI) | payer BC, SELFPAY | END 2024-03-15 08:36 | disposition home or self-care (01) | LOC: NFLDREF 03-25 07:06 | PROVIDERS: PCP Family Medicine; Referring Provider Family Medicine; Visit Provider Obstetrics & Gynecology | DX: O20.9 Hemorrhage in early pregnancy, unspecified (principal) | CPT/HCPCS: 84702 ==

== ENCOUNTER 2024-03-17 09:34 | Outpatient (CLI) | payer BC, SELFPAY | END 2024-03-17 09:35 | disposition home or self-care (01) | PROVIDERS: PCP Family Medicine; Referring Provider Family Medicine; Visit Provider Obstetrics & Gynecology | DX: O20.9 Hemorrhage in early pregnancy, unspecified (principal) | CPT/HCPCS: 84702 ==

== ENCOUNTER 2024-03-19 11:40 | Outpatient (CLI) | payer BC, SELFPAY | END 2024-03-19 11:41 | disposition home or self-care (01) | PROVIDERS: PCP Family Medicine; Referring Provider Family Medicine; Visit Provider Obstetrics & Gynecology | DX: O20.9 Hemorrhage in early pregnancy, unspecified (principal) | CPT/HCPCS: 84702 ==

== ENCOUNTER 2024-03-20 11:44 | Outpatient (CLI) | payer BC, SELFPAY ==
--- NOTE | 2024-03-20 11:30 | CRLHL7_ITS ---
For Patients: As a result of the Century Cures Act, medical imaging exams and procedure reports are released immediately into your electronic medical record. You may view this report before your referring provider. If you have questions, please contact your health care provider. Indication: f/u previous ultrasound, early ob, slow rising HCG, bleeding until 03/17/24, pending HCG today, eval for ectopic LMP: 02/11/2024 Technique: Real-time sonographic images of the pelvis were obtained transabdominally and transvaginally using grayscale, color, and Doppler imaging. Comparison: 03/11/2024. Findings: Slightly suboptimal evaluation secondary to overlying bowel gas. Uterus: 7.2 x 3.9 x 4.7 centimeter. Endometrium: 8 millimeter in thickness. Gestational sac: None visualized. pole: None visualized. Right ovary: Size: 4.1 x 2.3 x 2.5 centimeter. Appearance: Normal morphology. No masses. Left ovary: Size: 3.3 x 1.8 x 1.8 centimeter. Appearance: Normal morphology. No masses. Bladder: Visualized bladder is normal. Other: Trace free fluid in the right adnexa. Impression: No intrauterine gestational sac is identified. Findings may be seen in setting of early , missed , or ectopic . Recommend follow-up with serial beta-hCG and/or ultrasound. Dictated by Harvinder Rivera MD @ 03/20/2024 12:49:02 PM (Electronically Signed)
== END 2024-03-20 11:45 | disposition home or self-care (01) ==
LOC: US 11:46
PROVIDERS: PCP Family Medicine; Visit Provider Obstetrics & Gynecology
DX: O02.89 Other abnormal products of conception (principal)
CPT/HCPCS: 76817; 82565; 84450; 84460; 84702; T1013; J9260

== ENCOUNTER 2024-03-24 18:15 | Outpatient (CLI) | payer BC, SELFPAY | END 2024-03-24 18:16 | disposition home or self-care (01) | LOC: NFLDREF 03-25 16:06 | PROVIDERS: PCP Family Medicine; Referring Provider Family Medicine; Visit Provider Obstetrics & Gynecology | DX: O02.89 Other abnormal products of conception (principal); O00.90 Unspecified ectopic pregnancy without intrauterine pregnancy | CPT/HCPCS: 84702 ==

== ENCOUNTER 2024-03-27 14:01 | Outpatient (CLI) | payer BC, SELFPAY | END 2024-03-27 14:02 | disposition home or self-care (01) | LOC: NFLDREF 14:02 | PROVIDERS: PCP Family Medicine; Visit Provider Obstetrics & Gynecology | DX: O02.89 Other abnormal products of conception (principal); R30.0 Dysuria | CPT/HCPCS: 82565; 84450; 84460; 84520; 84702; 87086 ==

== ENCOUNTER 2024-04-03 09:36 | Outpatient (CLI) | payer BC, SELFPAY | END 2024-04-03 09:37 | disposition home or self-care (01) | LOC: NFLDREF 04-09 01:42 | PROVIDERS: PCP Family Medicine; Referring Provider Family Medicine; Visit Provider Obstetrics & Gynecology | DX: O20.9 Hemorrhage in early pregnancy, unspecified (principal) | CPT/HCPCS: 84702 ==

== ENCOUNTER 2024-04-12 09:53 | Outpatient (CLI) | payer BC, SELFPAY | END 2024-04-12 09:54 | disposition home or self-care (01) | LOC: NFLDREF 04-18 01:04 | PROVIDERS: PCP Family Medicine; Referring Provider Family Medicine; Visit Provider Obstetrics & Gynecology | DX: O02.89 Other abnormal products of conception (principal) | CPT/HCPCS: 84702 ==

== ENCOUNTER 2024-04-25 08:54 | Outpatient (CLI) | payer BC, SELFPAY | END 2024-04-25 08:55 | disposition home or self-care (01) | PROVIDERS: PCP Family Medicine; Visit Provider Obstetrics & Gynecology | DX: N89.8 Other specified noninflammatory disorders of vagina (principal); N96 Recurrent pregnancy loss | CPT/HCPCS: 82947; 83520; 84439; 85610; 85613; 85730; 86146; 86147; 88262 ==

== ENCOUNTER 2024-06-25 09:57 | Outpatient (CLI) | payer BC, SELFPAY ==
--- NOTE | 2024-06-25 10:15 | CRLHL7_ITS ---
For Patients: As a result of the Century Cures Act, medical imaging exams and procedure reports are released immediately into your electronic medical record. You may view this report before your referring provider. If you have questions, please contact your health care provider. Indication: Recurrent loss Technique: Routine hysterosalpingogram performed. Fluoroscopic time 0.43 minutes. IMPRESSION: Incidental air bubble noted within the right cornua. No suspicious endometrial filling defect. Normal patency of the fallopian tubes with spillage of contrast into the peritoneal cavity. Dictated by Wilbert Cody MD @ 06/25/2024 1:05:11 PM (Electronically Signed)
--- NOTE | 2024-06-25 18:01 | P.GYNPRC_ITS ---
Procedure Note Date of procedure: 06/25/24 Will [facility] bill your pro fee for this procedure?: Yes Pre-op diagnosis: Recurrent loss Post-op diagnosis: Same Procedure: Hysterosalpingogram Complications: None Surgeon: Radha Penaloza MD Findings: Patent fallopian tubes bilaterally with normal intrauterine contour and no intracavitary lesions Procedure Description: After obtaining verbal consent with the help of educational interpreter, the patient was placed in the dorsal lithotomy position on the x-ray table. An open-sided bivalve speculum was introduced into the vagina and the cervix easily visualized. The cervix and vagina were then prepped with Betadine. The anterior lip of the cervix was grasped with a single-tooth tenaculum for traction. A balloon tipped double-lumen catheter was then gently inserted through the cervical opening into the uterine cavity. The balloon was insufflated with 3 mL of air. The speculum was removed. The patient was repositioned in the supine position, covered, and the radiologist was called to the room. A hysterosalpingogram was then performed. A total of approximately 5 cc of Optiray 300 water soluble contrast dye was injected through the double-lumen catheter under moderate pressure. There was immediate fill of the uterine cavity to the cornua and immediate fill of both fallopian tubes and free spillage of dye on both sides. The balloon was deflated. The catheter was removed. The tenaculum was also removed. The patient tolerated the procedure well, though she did have moderate cramping discomfort during and just after the procedure. She was discharged to home in stable condition and to follow up as [facility].
== END 2024-06-25 09:58 | disposition home or self-care (01) ==
LOC: RAD 09:57
PROVIDERS: PCP Family Medicine; Visit Provider Obstetrics & Gynecology
DX: N96 Recurrent pregnancy loss (principal)
CPT/HCPCS: 58340; 74740; T1013; A4649; Q9967

== ENCOUNTER 2024-06-28 08:23 | Outpatient (CLI) | payer BC, SELFPAY | END 2024-06-28 08:24 | disposition home or self-care (01) | LOC: NFLDREF 08:24 | PROVIDERS: PCP Family Medicine; Visit Provider Obstetrics & Gynecology | DX: N96 Recurrent pregnancy loss (principal) | CPT/HCPCS: 86146 ==

== ENCOUNTER 2024-07-09 08:20 | Outpatient (CLI) | payer OTHER, SELFPAY | END 2024-07-09 08:21 | disposition home or self-care (01) | LOC: NFLDREF 07-17 22:06 | PROVIDERS: PCP Family Medicine; Referring Provider Family Medicine; Visit Provider Obstetrics & Gynecology | DX: N96 Recurrent pregnancy loss (principal) | CPT/HCPCS: 84144 ==